=== PATIENT | male | born 1955 | race Caucasian/White ===

== ENCOUNTER 2022-03-06 16:35 | Emergency (ER) | payer MEDICARE ==
[~2022-03-06] VITALS: Ht 170.2 cm; Wt 86.4 kg
[2022-03-06 16:40] VITALS: TEMP 97.9
[2022-03-06] MEDS ORDERED: NORCO 325 MG-51 TAB PO (17:50)
[2022-03-06 20:24] VITALS: BP 110/85; PULSE 62
== END 2022-03-06 18:44 | disposition home or self-care (01) ==
LOC: COL.ER 16:35
DX: S43.014A Anterior dislocation of right humerus, initial encounter (principal); W01.198A Fall on same level from slipping, tripping and stumbling with subsequent striking against other object, initial encounter
CPT/HCPCS: J1170; J2250; J2704

== ENCOUNTER 2023-02-26 08:54 | Day surgery (SDC) | payer MEDICARE ==
[~2023-02-26] VITALS: Ht 172.7 cm; Wt 91.9 kg
[~2023-02-26 08:54] MED LIST: NORCO 325 MG-51 TAB PO
[2023-02-26] MEDS ORDERED: GLUCOPHAGE XR500 M1 PO (10:22)
[2023-02-26] MEDS ORDERED: HCTZ12.5TAB (10:23)
[2023-02-26] MEDS ORDERED: DOXYCYCLINE HY100 MG (10:23)
[2023-02-26] MEDS ORDERED: CIALIS5 MG PO (10:24)
[2023-02-26] MEDS ORDERED: PRAVACHOL 20MG20 MG PO (10:24)
[2023-02-26] MEDS ORDERED: PRINIVIL2.5 MG PO (10:24)
[2023-02-26 11:05] VITALS: BP 97/51; PULSE 57; TEMP 97.7
[2023-02-26 11:20] VITALS: BP 111/78; PULSE 61
[2023-02-26 11:35] VITALS: BP 108/62; PULSE 56
[2023-02-26 11:57] VITALS: BP 139/62; PULSE 59; TEMP 97
--- NOTE | 2023-02-26 12:00 | NUR ---
1105: PATIENT TO BAY 4 PER CART FROM ENDO SUITE. REPORT RECEIVED FROM ENDO RN. VS OBTAINED. PATIENT GIVEN A MUFFIN AND DIET SPRITE. CALL LIGHT IN REACH. 1106: DR. ROSAS IN TO SPEAK WITH PATIENT. 1120: PATIENT TOLERATED MUFFIN AND DIET SPRITE. VS STABLE NO COMPLAINTS AT THIS TIME. CALL LIGHT IN REACH. GIRLFRIEND AT BEDSIDE. 1135: PATIENT REQUESTED ANOTHER MUFFIN AND SPRITE. VS STABLE. NO COMPLAINTS AT THIS TIME. CALL LIGHT IN REACH. GIRLFRIEND AT BEDSIDE. 1145: PATIENT TOLERATED SECOND MUFFIN. VS REMAIN STABLE. DISCHARGE EDUCATION COMPLETED. PATIENT STATED UNDERSTANDING OF HOME AND FOLLOWUP CARE. DISCHARGE PAPERWORK GIVEN TO PATIENT. IV DC'D AT THIS TIME. PATIENT DENIES ASSISTANCE WITH DRESSING. GIRLFRIEND REMAINS AT BEDSIDE. 1155: PATIENT OFF UNIT VIA WHEELCHAIR. PATIENT DISCHARGED TO HOME WITH GIRLFRIEND PER PERSONL VEHICLE.
== END 2023-02-26 11:55 | disposition home or self-care (01) ==
LOC: SDCO 08:54
DX: Z12.11 Encounter for screening for malignant neoplasm of colon (principal); D12.4 Benign neoplasm of descending colon; D12.3 Benign neoplasm of transverse colon; K57.30 Diverticulosis of large intestine without perforation or abscess without bleeding; K64.0 First degree hemorrhoids; E11.9 Type 2 diabetes mellitus without complications; I10 Essential (primary) hypertension; C44.90 Unspecified malignant neoplasm of skin, unspecified; Z79.84 Long term (current) use of oral hypoglycemic drugs; Z86.718 Personal history of other venous thrombosis and embolism
CPT/HCPCS: J2704